=== PATIENT | male | born 1945 | race Caucasian/White ===

== ENCOUNTER 2016-06-06 23:56 | Inpatient (IN) | payer MEDICARE ==
--- NOTE | 2016-06-07 00:43 | ED ---
General Adult HPI - General Chief complaint: Syncope Stated complaint: Syncope Time Seen by Provider: 06/07/16 00:13 Source: patient, family, RN notes reviewed Mode of arrival: ambulatory Limitations: no limitations - History of Present Illness Initial comments: Patient is a pleasant 71-year-old male presenting to the emergency department for syncopal episodes. Patient had 2 episodes earlier in the week and then 2 again today. These were witnessed by family. Patient become suddenly unresponsive in the last around 3 minutes. Following that patient comes responsive immediately. These are not similar to patient's previous seizures. He should states he feels fine at this time and has no complaints. No headache. No weakness. No confusion. No chest pain or dyspnea. No abdominal pain. Patient was seen at [facility] earlier today and transferred. Patient reportedly had negative computed tomography scan of the brain and troponin was negative. Patient was transferred for level of care and neurology evaluation. - Related Data Home Medications Medication Instructions Recorded Confirmed Hydrocodone/Acetaminophen [[place] 1 tab PO Q6HR PRN 06/07/16 06/07/16 7.5-325] Lisinopril [Zestril] 5 mg PO DAILY 06/07/16 06/07/16 Metoprolol Tartrate [Lopressor] 100 mg PO HS 06/07/16 06/07/16 Allergies Allergy/AdvReac Type Severity Reaction Status Date / Time No Known Allergies Allergy Verified 06/07/16 00:04 Review of Systems ROS Statement: Those systems with pertinent positive or pertinent negative responses have been documented in the HPI. ROS Other: All systems not noted in ROS Statement are negative. Constitutional: Denies: fever Eyes: Denies: eye pain ENT: Denies: ear pain Respiratory: Denies: cough, dyspnea Cardiovascular: Denies: chest pain Endocrine: Denies: fatigue Gastrointestinal: Denies: abdominal pain Genitourinary: Denies: dysuria Musculoskeletal: Denies: back pain Skin: Denies: rash Neurological: Denies: headache, weakness, confusion Past Medical History Past Medical History: Hyperlipidemia, Hypertension History of Any Multi-Drug Resistant Organisms: None Reported Past Surgical History: Unable to Obtain Past Psychological History: No Psychological Hx Reported Smoking Status: Never smoker Past Alcohol Use History: Occasional Past Drug Use History: None Reported General Exam Limitations: no limitations General appearance: alert, in no apparent distress Head exam: Present: atraumatic, normocephalic Eye exam: Present: normal appearance, PERRL, EOMI. Absent: nystagmus ENT exam: Present: normal oropharynx Neck exam: Present: normal inspection Respiratory exam: Present: normal lung sounds bilaterally Cardiovascular Exam: Present: regular rate, normal rhythm Expanded Peripheral pulses: 2+: Radial (R), Radial (L), Posterior Tibialis (R), Posterior Tibialis (L) GI/Abdominal exam: Present: soft. Absent: tenderness, pulsatile mass Extremities exam: Present: normal inspection. Absent: pedal edema, calf tenderness Neurological exam: Present: alert, oriented X3, CN II-XII intact, motor sensory deficit Expanded Patient oriented to: Present: person, place, time Speech: Present: fluid speech Cranial nerves: EOM's Intact: Normal Motor strength exam: RUE: 5, LUE: 5, RLE: 5, LLE: 5 Eye Response: (4) open spontaneously Motor Response: (6) obeys commands Verbal Response: (5) oriented Psychiatric exam: Present: normal affect, normal mood Skin exam: Absent: rash Course Vital Signs 06/07/16 00:01 Temperature 97.9 F Pulse Rate 78 Respiratory 20 Rate Blood Pressure 140/62 O2 Sat by Pulse 94 L Oximetry - Reevaluation(s) Reevaluation #1: 06/07/16 00:48 Chart review from transferring hospital. EKG Findings - EKG Comments: EKG Findings:: Normal sinus rhythm at 70. Normal intervals. Normal axis. Normal QRS. No acute ST change. Medical Decision Making - Medical Decision Making Case discussed with practitioner Aura, who will admit for Dr. Capps, covering for hospital call. Disposition Clinical Impression: Syncope Disposition: ADMITTED IP TO THIS HOSP
[2016-06-07] MEDS ORDERED: NALOXONE 0.4 MG/ML 1 ML VIAL IV PRN (00:50)
--- NOTE | 2016-06-07 01:30 | XR ---
EXAMINATION TYPE: XR chest 2V DATE OF EXAM: 06/07/2016 1:22 AM COMPARISON: NONE HISTORY: Episodes of syncope, seizure history of hypertension. TECHNIQUE: Frontal and lateral views of the chest are obtained. FINDINGS: Chronic interstitial lung changes are suggested bilaterally. Suggestion of mild atelectasis in the right lung base with possible mild infiltrate. There is no pneumothorax or pleural effusion. The cardiac silhouette size is within normal limits. Mu ltilevel mild degenerative changes in the thoracic spine.. Mild wedge compression deformity is noted in the lower thoracic vertebra most likely chronic in nature. IMPRESSION: 1. Possible mild infiltrate and atelectasis in the right lung base. 2. Chronic lung changes are suggested.
[2016-06-07 04:36] VITALS: BMI 33.7
[2016-06-07] MEDS: SODIUM CHLORIDE 0.9% 1,000 ML IV SCH ×2 (05:32→22:13)
[2016-06-07] MEDS ORDERED: HYDROcodone/APAP 5-325MG 1 EACH TAB PO PRN (08:29)
[2016-06-07] MEDS: DULoxetine HCL 60 MG CAPSULE.DR PO SCH (10:04)
[2016-06-07] MEDS: ETODOLAC 400 MG TAB PO SCH ×2 (10:07→21:13)
[2016-06-07] MEDS: LISINOPRIL 5 MG TAB PO SCH (10:07)
[2016-06-07] MEDS: METOPROLOL TARTRATE 50 MG TAB PO SCH ×2 (10:08→21:13)
[2016-06-07] MEDS ORDERED: RX INFO: IV CONTRAST WAS GIVEN 1 EACH MISC MISCELLANE PRN (11:33)
[2016-06-07 12:07] LABS: Basophils # (A) 0.1 k/uL (0-0.2); Basophils % (A) 1 %; CH 30.4; CHCM 34.1; Eosinophils # (A) 0.2 k/uL (0-0.7); Eosinophils % (A) 3 %; HGB 13.6 gm/dL (13.0-17.5); Luc # (Auto) 0.18; Luc % (Auto) 3; Lymphocytes # (A) 1.8 k/uL (1.0-4.8); Lymphocytes % (A) 27 %; MCH 28.9 pg (25.0-35.0); MCHC 32.3 g/dL (31.0-37.0); MCV 89.5 fL (80.0-100.0); Mean Platelet Volume 6.5; Monocytes # (A) 0.4 k/uL (0-1.0); Monocytes % (A) 7 %; Neutrophils # (A) 3.9 k/uL (1.3-7.7); Neutrophils % (A) 60 %; RDW 12.8 % (11.5-15.5); WBC 6.5 k/uL (3.8-10.6); WBC (Perox) 6.68
--- NOTE | 2016-06-07 12:33 | CONS ---
DATE OF CONSULTATION: CHIEF COMPLAINT: Syncope. Mr. Elizondo is a 71-year-old gentleman who presented to the hospital having had recurrent episodes of syncope. He is from [place]. They did not have any beds so they transferred him to our hospital. The patient states that he had 2 episodes of syncope initially earlier in the weak and then again 2 yesterday. He suddenly becomes unresponsive, lasts for about 3 minutes. The patient has had seizures in the past, but these 2 times he apparently did not. Had a CT brain that was negative. At the time of my evaluation, he appears comfortable at rest and is free of symptoms. Rhythm strip shows that he is in sinus rhythm without ST-T wave changes. EKG is normal. Labs show an elevated D-dimer. Troponins are negative. I am going to obtain a CTA to rule out pulmonary embolism. I do not have any creatinine on him, we will get a set of labs from here. Past medical history is significant for hypertension. Current medications include Lopressor 100 daily, Zestril 5 mg daily, [place], Voltaren, Cymbalta. ALLERGIES: There are no known drug allergies. Family history is negative for premature coronary artery disease. Social history is negative for current smoking, EtOH abuse or drug abuse. REVIEW OF SYSTEMS: HEENT: Unremarkable. CARDIAC: As described above. RESPIRATORY: Negative. GI: Negative. GENITOURINARY: Negative. ALLERGY/IMMUNOLOGICAL: Negative. MUSCULOSKELETAL: Significant for arthritis. PSYCHOSOCIAL: Negative. ENDOCRINE: Negative. HEMATOLOGICAL: Negative. DERMATOLOGICAL: Negative. CONSTITUTIONAL: Negative. NEUROLOGICAL: Significant for syncope. On exam, patient is comfortable at rest. Vital signs are stable. There is no jugular venous distention. Carotid upstroke is normal. There is no bruit. Chest exam reveals good air entry bilaterally. Heart exam reveals first and second heart sounds. No gallop. Has an ejection systolic murmur in the aortic area. Abdomen is soft. Exam of the extremities did not reveal edema. Peripheral pulses are felt. ASSESSMENT: Syncope; rule out cardiac causes. PLAN: I am going to obtain a CTA to rule out pulmonary embolism and echocardiogram to assess LV function, wall motion and valvular heart disease and a carotid duplex study. If this initial workup is negative, we can discharge him home and pursue outpatient workup. He will be set up for an appointment through my office and he will undergo a stress test.
[2016-06-07 12:37] LABS: ALT 51 U/L (21-72); AST 33 U/L (17-59); Alkaline Phosphatase 66 U/L (38-126); Anion Gap 8 mmol/L; Blood Urea Nitrogen 17 mg/dL (9-20); Calcium 8.9 mg/dL (8.4-10.2); Carbon Dioxide 28 mmol/L (22-30); Chloride 105 mmol/L (98-107); Glucose 87 mg/dL (74-99); Magnesium 2.1 mg/dL (1.6-2.3); Non-African American GFR(MDRD) >60 (>60 ml/min/1.73 sqM); Sodium 141 mmol/L (137-145); Total Bilirubin 0.6 mg/dL (0.2-1.3); Total Protein 6.3 g/dL (6.3-8.2)
--- NOTE | 2016-06-07 14:09 | CT ---
EXAMINATION TYPE: CT angio chest DATE OF EXAM: 06/07/2016 1:56 PM COMPARISON: Chest x-ray 07 June 2016 HISTORY: Patient complains of syncopal episode. CT DLP: 443.8 mGycm Automated exposure control for dose reduction was used. CONTRAST: CTA scan of the thorax is performed with IV Contrast, patient injected with 100 mL of Omnipaque 350, pulmonary embolism protocol. MIP images are created and reviewed. 3D reconstructed images are creat ed on an independent workstation and reviewed. FINDINGS: LUNGS: Minimal dependent atelectatic changes are present. No pleural effusion. Some minimal groundgla ss opacity present bilaterally may represent some pneumonitis, alveolitis. There are some interstitia l changes, thickening of interlobular septal pleural lines. AORTA: The ascending aorta is dilated measuring approximately 4.2 cm. There is a right-sided arch wi th aberrant left subclavian artery in a retroesophageal course. MEDIASTINUM: There is satisfactory enhancement of the pulmonary artery and its branches, there is no CT evidence for pulmonary embolism. There are no greater than 1 cm hilar or mediastinal lymph nodes. No pericardial effusion is seen. OTHER: There are coronary artery calcifications. Upper abdomen within normal limits. IMPRESSION: Correlate to exclude congestive heart failure with early interstitial and alveolar edema. Right aorti c arch with aberrant left subclavian artery as described. No evident pulmonary embolism. Ascending ao rtic aneurysm. Coronary artery disease. Additional findings above.
--- NOTE | 2016-06-07 14:42 | US ---
EXAMINATION TYPE: US carotid duplex BILAT DATE OF EXAM: 06/07/2016 2:13 PM COMPARISON: NONE CLINICAL HISTORY: Syncope. EXAM MEASUREMENTS: RIGHT: Peak Systolic Velocity (PSV) cm/sec ----- Right CCA: 35.7 ----- Right ICA: 139.1 ----- Right ECA: 40.9 ICA/CCA ratio: 3.9 RIGHT: End Diastole cm/sec ----- Right CCA: 9.5 ----- Right ICA: 36.0 ----- Right ECA: 6.0 LEFT: Peak Systolic Velocity (PSV) cm/sec ----- Left CCA: 43.5 ----- Left ICA: 133.3 ----- Left ECA: 107.5 ICA/CCA ratio: 3.1 LEFT: End Diastole cm/sec ----- Left CCA: 9.5 ----- Left ICA: 19.2 ----- Left ECA: 25.0 VERTEBRALS (direction of flow): Right Vertebral: Antegrade Left Vertebral: Antegrade Grayscale, color Doppler, spectral Doppler imaging performed of the carotid arteries. There are eleva lee velocities in bilateral ICA's with ratios suggestive of Carotid stenosis. There is loss of the systolic window, spectral broadening is noted. IMPRESSION: Findings suggest hemodynamic significant stenosis of the proximal internal carotid arter ies bilaterally by Doppler criteria, and indirect measurement of carotid stenosis. Suspect at least 50-69% diameter reduction of the proximal internal carotid artery on the right. Consider carotid CTA . Criteria for Assigning % of Stenosis / Diameter reduction (Estimation based on the indirect measurements of the internal carotid artery velocities (ICA PSV). 1. Normal (no stenosis)=ICA PSV < 125 cm/s: ratio < 2.0: ICA EDV<40 cm/s. 2. Less than 50% stenosis=ICA PSV < 125 cm/s: ratio < 2.0: ICA EDV<40 cm/s. 3. 50 to 69% stenosis=ICA PSV of 125 to 230 cm/s: ration 2.0 ? 4.0: ICA EDV 40-100 cm/s. 4. Greater than 70% stenosis to near occlusion= ICA PSV > 230 cm/s: ratio > 4.0: ICA EDV > 100 cm/s. 5. Near occlusion= ICA PSV velocities may be low or undetectable: variable ratio and ICA EDV. 6. Total occlusion=unable to detect flow.
[2016-06-07] MEDS ORDERED: ACETAMINOPHEN TAB 500 MG TAB PO PRN (14:57)
[2016-06-07] MEDS ORDERED: ALPRAZolam 0.25 MG TAB PO PRN (14:57)
[2016-06-07] MEDS: FUROSEMIDE 10 MG/ML 4 ML VIAL IV SCH (16:30)
[2016-06-07 16:45] LABS: Appearance,Urine Clear (Clear); Bilirubin,Urine 1+ (Negative); Glucose,Urine (UA) Negative (Negative); Ketones,Urine Negative (Negative); Leukocyte Esterase,Urine Negative (Negative); Nitrite,Urine Negative (Negative); PH, Urine 5.5 (5.0-8.0); Protein,Urine Negative (Negative); Specific Gravity,Urine 1.037 (1.001-1.035); UA Billing (MACRO vs. MICRO) CHEM; Urobilinogen,Urine <2.0 mg/dL (<2.0)
--- NOTE | 2016-06-07 17:10 | P.CONS ---
History of Present Illness - Reason for Consult Consult date: 06/07/16 Syncope - Chief Complaint Syncope - History of Present Illness This is a 71-year-old male being evaluated by the neurology Department for syncopal episodes. He had 2 episodes earlier in the week and then 2 on the day of admission. These were witnessed by family and lasted minutes. There was no postictal confusion. He denies any aura. There is no headache there is no weakness. He was transferred here from [facility] initial CT of brain was negative. CTA of the chest was ordered and because of increased d-dimer. This was negative. A carotid Doppler was done and showed moderate stenosis of bilateral internal carotid arteries. Consultation has been placed to address this. An EEG has been accomplished. At time my exam he is resting comfortably in bed. Review of Systems All systems: negative Past Medical History Past Medical History: Hyperlipidemia, Hypertension, Seizure Disorder Additional Past Medical History / Comment(s): Chronic back pain (spurs) History of Any Multi-Drug Resistant Organisms: None Reported Past Surgical History: Unable to Obtain Past Anesthesia/Blood Transfusion Reactions: No Reported Reaction Past Psychological History: No Psychological Hx Reported Smoking Status: Never smoker Past Alcohol Use History: Occasional Past Drug Use History: None Reported Medications and Allergies Home Medications Medication Instructions Recorded Confirmed Type DULoxetine HCL [Cymbalta] 60 mg PO DAILY 06/07/16 06/07/16 History Diclofenac Sodium [Voltaren] 75 mg PO BID 06/07/16 06/07/16 History Hydrocodone/Acetaminophen [[place] 1 tab PO BID PRN 06/07/16 06/07/16 History 7.5-325] Lisinopril [Zestril] 5 mg PO DAILY 06/07/16 06/07/16 History Metoprolol Tartrate [Lopressor] 100 mg PO HS 06/07/16 06/07/16 History Allergies Allergy/AdvReac Type Severity Reaction Status Date / Time No Known Allergies Allergy Verified 06/07/16 08:02 Physical Exam Vitals: Vital Signs Temp Pulse Pulse Resp BP BP Pulse Ox 06/07/16 15:24 96.7 F L 54 L 18 147/84 93 L 06/07/16 12:00 97.6 F 57 L 16 153/83 95 06/07/16 08:00 97.5 F L 64 16 149/65 95 06/07/16 04:18 96.9 F L 58 L 16 153/79 94 L 06/07/16 03:45 69 20 168/81 96 Intake and Output 06/07/16 06/07/16 06/07/16 06:59 14:59 22:59 Intake Total 219 20 Balance 219 20 Intake: IV 39 20 Invasive Line 1 29 Sodium Chloride 0.9% 1, 10 20 000 ml @ 20 mls/hr IV . Q24H JAY Rx#:[id number] Oral 180 Other: Voiding Method Urinal # Voids 2 Weight 103.6 kg - Constitutional General appearance: average body habitus, cooperative, no acute distress - EENT Eyes: no abnormal pupil, EOMI, PERRLA, no ptosis ENT: hearing grossly normal - Neck Neck: normal ROM, no rigidity - Respiratory Respiratory: negative: prolonged expiration, prolonged inspiration - Cardiovascular Rhythm: regular - Gastrointestinal General gastrointestinal: no distended, no tenderness - Neurologic Patient is alert, awake and oriented 3. Speech and language are normal. There is no lateralizing weakness. Strength is full in bilateral upper and lower extremities. There is no sensory deficit in any extremity. There is no facial asymmetry. No pronator drift. No weakness on standing. Gait is mildly unsteady. Results CBC & Chem 7: 06/07/16 11:45 06/07/16 11:45 Labs: Abnormal Lab Results - Last 24 Hours (Table) 06/07/16 06/07/16 Range/Units 01:07 16:30 D-Dimer 0.77 H (<0.60) mg/L FEU Ur Specific [place] 1.037 H (1.001-1.035) Urine Bilirubin 1+ H (Negative) Urine Opiates Screen Detected H (NotDetected) U Marijuana (THC) Screen Detected H (NotDetected) Assessment and Plan (1) Syncope, cardiogenic Status: Acute (2) Hypertension Status: Chronic (3) Carotid stenosis Status: Chronic Plan: His episodes are likely cardiogenic in nature. Continue evaluation and treatment by cardiology and vascular. An EEG has been performed. Barring any unforeseen abnormalities on his EEG he would be cleared from a neurological standpoint. I have reviewed the history and physical on the above patient. I have reviewed the above note, and agree.
--- NOTE | 2016-06-07 17:44 | HP ---
DATE OF ADMISSION: 06/07/2016 CHIEF COMPLAINT: Recurrent syncope. HISTORY OF PRESENT ILLNESS: This 71-year-old gentleman with past medical history of multiple medical problems, including hypertension, hyperlipidemia, seizure disorder, history of chronic back pain, history of degenerative joint disease, being followed by primary care physician in the outpatient setting was admitted with complaints of recurrent seizures. Over the last week, the patient had at least 2 episodes. The episodes were witnessed by family. The patient became suddenly unresponsive and lasted for 2 to 3 minutes. The patient became responsive immediately. Apparently there is some question of incontinence also. Patient was taken to [facility] and was admitted for further evaluation and treatment. Seizures are not like the patient's usual seizures according to the family. There is no history of fever, rigors or chills. No history of headache, loss of consciousness. Neurology evaluation in progress. On admission, the patient had a full work-up including chest x-ray, which showed mild infiltrate and possible atelectasis in the right lung base and some chronic changes. The EKG shows normal sinus rhythm. Carotid Doppler showed paroxysmal internal carotid artery stenosis at least 50 to 69% and a chest CT was done to rule out pulmonary embolism which showed mild congestive heart failure. Otherwise, CAT scan of the brain was also noted. The patient is referred from [facility] and transferred. CAT scan done was negative. PAST MEDICAL HISTORY: History of hypertension, hyperlipidemia, seizure disorder, history of chronic seizures. Medications prior to admission: 1. Lopressor 100 mg p.o. q.h.s. 2. Zestril 5 mg p.o. daily. 3. [place] 7.5 b.i.d. p.r.n. 4. Voltaren 75 mg p.o. b.i.d. 5. Cymbalta 60 mg p.o. daily. ALLERGIES: None. FAMILY HISTORY: No history of heart disease or strokes in the family. SOCIAL HISTORY: No history of smoking. No history of alcohol intake. REVIEW OF SYSTEMS: ENT: No diminished hearing. No diminished vision. CARDIOVASCULAR SYSTEM: No angina or palpitations. RESPIRATORY: As mentioned earlier. GASTROINTESTINAL: No nausea or vomiting. GASTROINTESTINAL: No dysuria. CENTRAL NERVOUS SYSTEM: As mentioned earlier. ALLERGY/IMMUNOLOGY: No asthma or hayfever. MUSCULOSKELETAL: As mentioned earlier. HEMATOLOGY/ONCOLOGY: No history of anemia. ENDOCRINE: No history of diabetes mellitus or hypothyroidism. CONSTITUTIONAL: As mentioned earlier. DERMATOLOGY: Negative. RHEUMATOLOGY: Negative. PSYCHIATRY: As mentioned earlier. PHYSICAL EXAMINATION: Alert and oriented x3, pulse 58, blood pressure 150/70. Respiratory rate 16, temperature 96.9, pulse ox 94% on room air. HEENT: Conjunctivae normal. Oral mucosa moist. NECK: No jugular venous distention. No carotid bruit. No lymph node enlargement. CARDIOVASCULAR: S1, S2 muffled. RESPIRATORY: Breath sounds diminished at the bases. Bilateral scattered rhonchi and crackles. ABDOMEN: Soft, nontender. No mass palpable. LEGS: No edema. No swelling. Nervous system: Higher function as mentioned earlier. Moves all 4 limbs. No focal deficits. LYMPHATICS: No lymph nodes palpable in the neck, axillae or groin. SKIN: No ulcer, rash or bleeding. LABS: CBC within normal limits. Troponin is less than 0.012, d-dimer 0.77. ASSESSMENT: 1. Recurrent syncope for evaluation possible seizure disorder. 2. Rule out congestive heart failure, acute exacerbation. 3. Hypertension. 4. Hyperlipidemia. 5. History of seizure disorder. 6. Chronic degenerative joint disease. 7. Increased d-dimer with no evidence of pulmonary embolism. 8. 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 9. Bilateral internal carotid artery stenosis 50 to 69%. RECOMMENDATIONS AND DISCUSSION: In this 71 -year-old gentleman who presented with multiple complex medical issues, we will monitor the patient closely, continue the current medications, continue symptomatic treatment. I would also recommend EEG with Dr. Bailon with neurology and continue to monitor. Otherwise watch for seizures. Seizure precautions. Neurovascular work-up and neurochecks. Otherwise, resume the home medications. I would also recommend a cardiac , 2-D echo and as well as BNP also. Cardiology also been consulted and we will continue to monitor. Further recommendations to follow. Prognosis guarded. Discussed with the patient, understands and agrees. TOSHA
--- NOTE | 2016-06-07 20:10 | CONS ---
DATE OF CONSULTATION: This patient is a 71-year-old gentleman who came to the emergency room episode of syncopal attack. This happened earlier in the week and again. Patient came to the emergency room and he became unresponsive for about 3 minutes. After that patient recovered completely. No history of any seizure. No history of any motor deficit. No history of amaurosis fugax. No history of chest pain. No shortness of breath. PAST MEDICAL HISTORY: History of hyperlipidemia, hypertension. SURGICAL HISTORY: No major surgery done in the past. On examination, patient was seen in his room. His vital signs are stable. No bruit appreciated in the neck. Chest is clear to auscultation. First and second sounds are normal. Abdomen is soft, nontender. Neuro exam is alert. Cranial nerves intact. Normal motor function VASCULAR EXAMINATION: Brachial, radial and femoral pulses are present. The patient had carotid ultrasound which showed right side 50% to 69% stenosis. The patient also had a CT of the chest, which showed ascending aortic aneurysm, 4.2 cm. No evidence of pulmonary embolism. IMPRESSION: Syncopal attack with the right carotid 50 to 69% stenosis. Patient has been admitted and neuro consult has been obtained. We will follow with you. The patient needs cardiac work-up.
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
[2016-06-07] MEDS ORDERED: TEMAZEPAM 15 MG CAP PO PRN (21:00)
[2016-06-07] MEDS: HYDROcodone/APAP 7.5-325MG 1 EACH TAB PO SCH (21:15)
[2016-06-08 06:45] LABS: Basophils # (A) 0.1 k/uL (0-0.2); Basophils % (A) 1 %; CH 30.4; Eosinophils # (A) 0.3 k/uL (0-0.7); Eosinophils % (A) 4 %; HCT 43.4 % (39.0-53.0); HDW 2.68; HGB 14.2 gm/dL (13.0-17.5); Luc # (Auto) 0.16; Luc % (Auto) 2; Lymphocytes % (A) 30 %; MCH 29.3 pg (25.0-35.0); MCHC 32.6 g/dL (31.0-37.0); MCV 89.8 fL (80.0-100.0); Mean Platelet Volume 6.1; Monocytes # (A) 0.4 k/uL (0-1.0); Monocytes % (A) 6 %; Neutrophils # (A) 3.8 k/uL (1.3-7.7); Neutrophils % (A) 57 %; RBC 4.83 m/uL (4.30-5.90); RDW 12.8 % (11.5-15.5); WBC 6.7 k/uL (3.8-10.6); WBC (Perox) 7.15
[2016-06-08 07:06] LABS: ALT 49 U/L (21-72); AST 26 U/L (17-59); Alkaline Phosphatase 61 U/L (38-126); Anion Gap 8 mmol/L; Blood Urea Nitrogen 20 mg/dL (9-20); Calcium 8.7 mg/dL (8.4-10.2); Carbon Dioxide 30 mmol/L (22-30); Chloride 104 mmol/L (98-107); Cholesterol 206 mg/dL (<200); Glucose 88 mg/dL (74-99); HDL Cholesterol 57 mg/dL (40-60); Non-African American GFR(MDRD) >60 (>60 ml/min/1.73 sqM); Potassium 4.2 mmol/L (3.5-5.1); Sodium 142 mmol/L (137-145); Total Bilirubin 0.5 mg/dL (0.2-1.3); Total Protein 6.2 g/dL (6.3-8.2); Triglycerides 51 mg/dL (<150)
[2016-06-08] MEDS: FUROSEMIDE 10 MG/ML 4 ML VIAL IV SCH (08:02)
[2016-06-08] MEDS: HYDROcodone/APAP 7.5-325MG 1 EACH TAB PO SCH ×2 (08:02→20:01)
[2016-06-08] MEDS: METOPROLOL TARTRATE 50 MG TAB PO SCH ×2 (08:03→20:02)
[2016-06-08] MEDS: ETODOLAC 400 MG TAB PO SCH ×2 (08:03→20:02)
[2016-06-08] MEDS: DULoxetine HCL 60 MG CAPSULE.DR PO SCH (08:03)
[2016-06-08] MEDS: LISINOPRIL 5 MG TAB PO SCH (08:03)
--- NOTE | 2016-06-08 10:20 | ECHOF ---
Referral Reason:syncope MEASUREMENTS -------- HEIGHT: 182.9 cm WEIGHT: 104.3 kg BP: RVIDd: 2.6 cm (< 3.3) IVSd: 1.3 cm (0.6 - 1.1) LVIDd: 5.2 cm (3.9 - 5.3) LVPWd: 1.4 cm (0.6 - 1.1) IVSs: 2.0 cm LVIDs: 4.4 cm LVPWs: 1.4 cm LA Diam: 3.9 cm (2.7 - 3.8) LAESV Index (A-L): 33.21 ml/m MV EXCURSION: 21.518 mm (> 18.000) MV EF SLOPE: 34 mm/s (70 - 150) EPSS: 1.1 cm MV E Frederic: 0.65 m/s MV DecT: 216 ms MV A Frederic: 0.75 m/s MV E/A Ratio: 0.87 AV maxP.32 mmHg AV meanP.95 mmHg RAP: 5.00 mmHg RVSP: 15.66 mmHg FINDINGS -------- Sinus rhythm. This was a technically adequate study. There is mild concentric left ventricular hypertrophy. Overall left ventricular systolic function is low-normal with, an EF between 50 - 55 %. Both the mean atrial pressure as well as the LV end diastolic pressure is elevated 14.38. The right ventricle is normal in size. LA is midly dilated 29-33ml/m2. The right atrial size is normal. There is mild aortic regurgitation. There is moderate aortic stenosis present. Peak/mean gradient across the Aortic Valve is 56.32mmHg / 29.95mmHg. Can't exclude Bicuspid valve vs fused cusp. Mild mitral annular calcification present. Mild mitral regurgitation is present. Mild tricuspid regurgitation present. There is no evidence of pulmonary hypertension. The right ventricular systolic pressure, as measured by Doppler, is 15.66mmHg. There is no pulmonic regurgitation present. The aortic root size is normal. There is no pericardial effusion. CONCLUSIONS -------- 1. There is mild concentric left ventricular hypertrophy. 2. Mild mitral regurgitation is present. 3. Mild tricuspid regurgitation present. 4. There is no evidence of pulmonary hypertension. 5. The right ventricular systolic pressure, as measured by Doppler, is 15.66mmHg. 6. Overall left ventricular systolic function is low-normal with, an EF between 50 - 55 %. 7. Both the mean atrial pressure as well as the LV end diastolic pressure is elevated 14.38. 8. LA is midly dilated 29-33ml/m2. 9. There is mild aortic regurgitation. 10. There is moderate aortic stenosis present. 11. Peak/mean gradient across the Aortic Valve is 56.32mmHg / 29.95mmHg. 12. Can't exclude Bicuspid valve vs fused cusp. 13. Mild mitral annular calcification present. STORE ASSOCIATE: Mayuri Mendez RDCS
--- NOTE | 2016-06-08 13:48 | PN ---
Mr. Elizondo was evaluated by me. Clinically, he appears to have at least a moderate, if not severe aortic stenosis. He came in with an episode of syncope. Patient is not a reliable historian. His vital signs are stable. JVD 1 cm. Ejection systolic murmur is audible. Lungs are clear. Abdomen and lower extremity exam unchanged. Plan is to continue current medications. Increase activity. Continue telemetry. I will also obtain a neurology evaluation to rule out any underlying dementia or some confusional states. He has moderate aortic stenosis, cannot exclude coronary artery disease, but has no arrhythmia to explain syncope unless aortic stenosis alone can explain the syncopal spell, but he was not doing any physical activity when he passed out. However, his story about what happened exactly seems quite inconsistent. We will monitor telemetry and based on clinical course, I will make further recommendations.
[2016-06-08] MEDS: HEPARIN SODIUM,PORCINE 5,000 UNIT/ML 1 ML VIAL SQ SCH (20:03)
--- NOTE | 2016-06-08 21:21 | PN ---
DATE OF SERVICE: 06/08/2016 This 71-year-old gentleman who was admitted with recurrent syncope is being closely monitored at this time. Neurology Dr. Bailon has seen the patient and recommended, possibly look for any cardiac etiology for the syncope. The patient also had bilateral carotid artery stenosis also. Dr. Shaikh thinks the patient is not a surgical candidate at this time. The 2-D echo showed ejection fraction about 50 to 55%. Mild aortic regurgitation, as well as moderate aortic stenosis, also. The peak mean gradient across the aortic valve was 56 and 29. Bicuspid valve fused cusp cannot be ruled out. Mild mitral regurgitation and mild tricuspid regurgitation also noted. PAST MEDICAL HISTORY: Reviewed. REVIEW OF SYSTEMS: CARDIOVASCULAR: No angina. RESPIRATORY: As mentioned earlier. GASTROINTESTINAL: As mentioned earlier. : No dysuria. Nervous system: As mentioned earlier. Current medications are reviewed and include: 1. Tylenol 500 mg q6h p.r.n. 2. [place] 7.5 b.i.d. 3. Xanax 0.25 t.i.d. 4. Cymbalta 60 mg daily. 5. Lodine 400 mg b.i.d. 6. Lasix 40 mg daily. 7. Heparin 5000 subcu b.i.d. 8. Zestril 5 mg daily. 9. Lopressor 50 mg p.o. b.i.d. 10. Restoril 50 mg q.h.s. p.r.n. PHYSICAL EXAMINATION: Alert and oriented x3. Pulse is 59, blood pressure 149/62, respiratory rate 16, temperature 97.2, pulse ox 94% on room air. HEENT: Conjunctivae normal. NECK: No jugular venous distention. CARDIOVASCULAR: S1, S2 muffled. Ejection systolic murmur. RESPIRATORY: Breath sounds diminished at the bases. A few scattered rhonchi and crackles. ABDOMEN: Soft, nontender. Legs: No edema. No swelling. Nervous system: Higher function as mentioned. Moves all four limbs. No focal deficits. LYMPHATICS: No lymph nodes palpable in the neck, axillae or groin. SKIN: No ulcer, rash or bleeding. Labs are THC positive in the urine. Otherwise, cholesterol, LDL 139. ASSESSMENT: 1. Recurrent syncope for evaluation rule out seizure disorder or cardiac arrhythmia. 2. Moderate aortic stenosis. 3. Hyperlipidemia. 4. Positive. THC. 5. Possible congestive heart failure with acute on chronic diastolic dysfunction, ejection fraction 50% to 55%. 6. Hypertension. 7. Hyperlipidemia. 8. History of seizure disorder. 9. History of chronic degenerative joint disease . 10. Increased D. dimer without any evidence of pulmonary embolism. 11. 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 12. Bilateral internal carotid stenosis 50 to 69%. RECOMMENDATIONS AND DISCUSSION: In this 71-year-old gentleman who presented with multiple complex medical issues, we will monitor the patient closely, continue the current medications, continue symptomatic treatment. Discussed with cardiology, possible RENETTA. Otherwise also recommend repeat labs. I would also repeat chest x-ray to evaluate the fluid and electrolyte balance. Repeat labs. Guarded prognosis because of multiple complex medical issues. Further recommendations to follow. Discussed with the patient, understands and agrees. TOSHA
[2016-06-09 04:36] VITALS: RESP 16
[2016-06-09] MEDS: SODIUM CHLORIDE 0.9% 1,000 ML IV SCH (05:29)
[2016-06-09 06:12] LABS: Basophils # (A) 0.1 k/uL (0-0.2); Basophils % (A) 1 %; CH 30.4; CHCM 34.2; Eosinophils # (A) 0.3 k/uL (0-0.7); Eosinophils % (A) 4 %; HDW 2.69; HGB 14.5 gm/dL (13.0-17.5); Luc # (Auto) 0.23; Luc % (Auto) 3; Lymphocytes # (A) 2.2 k/uL (1.0-4.8); Lymphocytes % (A) 29 %; MCH 29.4 pg (25.0-35.0); MCHC 32.9 g/dL (31.0-37.0); MCV 89.3 fL (80.0-100.0); Mean Platelet Volume 6.2; Monocytes # (A) 0.5 k/uL (0-1.0); Monocytes % (A) 6 %; Neutrophils # (A) 4.3 k/uL (1.3-7.7); Neutrophils % (A) 57 %; RBC 4.92 m/uL (4.30-5.90); RDW 12.8 % (11.5-15.5); WBC 7.5 k/uL (3.8-10.6); WBC (Perox) 7.55
[2016-06-09 06:22] LABS: ALT 50 U/L (21-72); AST 31 U/L (17-59); Alkaline Phosphatase 62 U/L (38-126); Anion Gap 9 mmol/L; Blood Urea Nitrogen 20 mg/dL (9-20); Calcium 8.7 mg/dL (8.4-10.2); Carbon Dioxide 29 mmol/L (22-30); Chloride 104 mmol/L (98-107); Glucose 85 mg/dL (74-99); Non-African American GFR(MDRD) >60 (>60 ml/min/1.73 sqM); Potassium 4.2 mmol/L (3.5-5.1); Sodium 142 mmol/L (137-145); Total Bilirubin 0.8 mg/dL (0.2-1.3); Total Protein 6.3 g/dL (6.3-8.2)
--- NOTE | 2016-06-09 07:37 | XR ---
EXAMINATION TYPE: XR chest 1V portable DATE OF EXAM: 06/09/2016 6:39 AM COMPARISON: Prior chest x-ray 07 June 2016 HISTORY: Congestive heart failure, hypertension TECHNIQUE: Single frontal view of the chest is obtained. FINDINGS: There are overlying cardiac leads. Heart size is stable. No pneumothorax or pleural effusi on. Pulmonary vascularity and taty not significantly changed. Right-sided aortic arch. Patchy basilar density is noted. IMPRESSION: Suspect basilar atelectasis. Borderline enlarged heart.
[2016-06-09] MEDS: HYDROcodone/APAP 7.5-325MG 1 EACH TAB PO SCH ×2 (08:29→20:46)
[2016-06-09] MEDS: HEPARIN SODIUM,PORCINE 5,000 UNIT/ML 1 ML VIAL SQ SCH ×2 (08:30→20:47)
[2016-06-09] MEDS: FUROSEMIDE 10 MG/ML 4 ML VIAL IV SCH (08:31)
[2016-06-09] MEDS: DULoxetine HCL 60 MG CAPSULE.DR PO SCH (08:34)
[2016-06-09] MEDS: METOPROLOL TARTRATE 50 MG TAB PO SCH (08:34)
[2016-06-09] MEDS: ETODOLAC 400 MG TAB PO SCH ×2 (08:35→20:47)
[2016-06-09] MEDS: LISINOPRIL 5 MG TAB PO SCH (08:35)
--- NOTE | 2016-06-09 09:02 | EEG ---
DATE OF SERVICE: 06/08/2016 INDICATIONS FOR EXAMINATION: Syncope. AGE: 71Y DESCRIPTION OF THE PROCEDURE: This EEG was performed using a 21-channel digital electroencephalograph, following the international 10 to 20 system. DESCRIPTION OF THE RECORDING: From the beginning of the tracing, and with the patient's eyes closed, the background rhythm was mostly consisting of 8 to 9 Hz alpha frequency in the posterior occipital leads. No obvious asymmetry is seen. Occasional muscle and movement artifacts are seen. Photic stimulation was performed with a good driving response seen. No pathological waves were elicited. Hyperventilation was not performed. The patient remains awake throughout the tracing. No epileptiform discharges were seen. His EKG lead showed a regular rate and rhythm. INTERPRETATION: This awake EEG can be considered within normal limits. There was no asymmetry seen. No epileptiform discharges were noticed. The absence of epileptiform discharges does not rule out the diagnosis of epilepsy, therefore, clinical correlation is recommended.
--- NOTE | 2016-06-09 15:34 | PN ---
Mr. Elizondo is a gentleman with a moderate to severe aortic stenosis, had a syncopal episode. I reviewed his records from [facility] and about 2 years ago he had a similar clinical picture. There is also a question of alcoholism and seizure disorder as well, but patient denies both. Vital signs are stable. Ejection systolic murmur is audible. Second heart sound is not well heard. Lungs are clear. Abdomen and lower extremity exam unchanged. I am recommending a transesophageal echo by Dr. Fung tomorrow and we should also consider coronary angiography if the stenosis is significant. I explained this to the patient. The echo suggests the possibility of a bicuspid valve. If so, assessment of ascending aorta should also be performed to rule out any ascending aortic aneurysm-type picture, if this is indeed a bicuspid aortic valve. I discussed this at length with the patient. He seems to understand this. There was a CT angiography performed as well, and the ascending aorta on the CT angiography seems to measure about 4.2 cm with a right-sided arch and an aberrant subclavian. Patient is agreeable and wishes to proceed with a transesophageal echo.
[2016-06-09] MEDS: METOPROLOL TARTRATE 25 MG TAB PO SCH (20:50)
[2016-06-09] MEDS ORDERED: ATORVASTATIN 40 MG TAB PO SCH (21:00)
[2016-06-10] MEDS: SODIUM CHLORIDE 0.9% 1,000 ML IV SCH (01:12)
[2016-06-10 06:53] LABS: Basophils # (A) 0.1 k/uL (0-0.2); Basophils % (A) 1 %; CH 30.4; CHCM 34.2; Eosinophils # (A) 0.3 k/uL (0-0.7); Eosinophils % (A) 4 %; HDW 2.68; HGB 14.3 gm/dL (13.0-17.5); Luc # (Auto) 0.18; Luc % (Auto) 3; Lymphocytes % (A) 29 %; MCHC 32.4 g/dL (31.0-37.0); MCV 89.4 fL (80.0-100.0); Mean Platelet Volume 6.3; Monocytes # (A) 0.4 k/uL (0-1.0); Monocytes % (A) 6 %; Neutrophils # (A) 3.9 k/uL (1.3-7.7); Neutrophils % (A) 58 %; RBC 4.92 m/uL (4.30-5.90); RDW 12.7 % (11.5-15.5); WBC 6.8 k/uL (3.8-10.6); WBC (Perox) 7.05
[2016-06-10 07:01] LABS: ALT 55 U/L (21-72); AST 32 U/L (17-59); Alkaline Phosphatase 69 U/L (38-126); Anion Gap 8 mmol/L; Blood Urea Nitrogen 23 mg/dL (9-20); Calcium 8.8 mg/dL (8.4-10.2); Carbon Dioxide 28 mmol/L (22-30); Chloride 104 mmol/L (98-107); Glucose 87 mg/dL (74-99); Non-African American GFR(MDRD) >60 (>60 ml/min/1.73 sqM); Potassium 4.2 mmol/L (3.5-5.1); Sodium 140 mmol/L (137-145); Total Bilirubin 0.8 mg/dL (0.2-1.3); Total Protein 6.3 g/dL (6.3-8.2)
[2016-06-10] MEDS ORDERED: MIDAZOLAM 2 MG/2 ML VIAL ONE (07:45)
[2016-06-10] MEDS ORDERED: fentaNYL (PF) 50 MCG/ML 2 ML AMP ONE (07:46)
[2016-06-10] MEDS ORDERED: BENZOCAINE SPRAY 100 APPLIC/CAN MUCOUS MEM ONE ×3 (07:46→07:51)
[2016-06-10] MEDS ORDERED: fentaNYL (PF) 50 MCG/ML 2 ML AMP IV ONE (07:51)
[2016-06-10] MEDS ORDERED: MIDAZOLAM 2 MG/2 ML VIAL IVP ONE (07:51)
[2016-06-10] MEDS ORDERED: SODIUM CHLORIDE 0.9% 500 ML IV ONE (07:57)
--- NOTE | 2016-06-10 08:40 | ECHOT ---
DATE OF SERVICE: INDICATION: Aortic stenosis and syncope. After explaining benefits, and alternatives, informed consent was obtained and transesophageal echocardiogram was performed using an Omniplane probe in the left lateral position. Local and IV sedation were obtained using Xylocaine spray, intravenous Versed and fentanyl. Patient tolerated the procedure well without any obvious immediate complications. FINDINGS: 1. Aortic valve is a 3 leaflet that appears heavily calcified with moderate restriction in leaflet mobility by planimetry technique, which was suboptimal secondary to heavily calcified aortic valve. The valve area seems to be around 1.4 square centimeters. Based on the 2-D appearance in the planametry I believe the patient has moderate aortic stenosis. There is mild to moderate aortic regurgitation noted. 2. Mitral valve appears anatomically normal. There is trace mitral regurgitation noted. There is trace tricuspid regurgitation noted. 3. Left atrium appears enlarged. 4. Right atrium, right ventricle within normal limits. 5. Left ventricle has normal size and systolic function. 6. Interatrial septum shows lipomatous hypertrophy without any evidence of [id number] shunt by color flow Doppler or [id number] shunt by ( ) saline contrast study. 7. Ascending aorta measures 3 cm. Aorta shows moderate atherosclerotic changes. CONCLUSIONS: Tricuspid aortic valve with moderate aortic stenosis with mild to moderate aortic regurgitation in this patient who has multiple underlying problems. I am not sure if the syncope is related to aortic stenosis. However, we will follow him on discharge and might consider doing an outpatient cardiac cath on him. Thank you for allowing us to participate in the care of this pleasant gentleman.
[2016-06-10] MEDS: HYDROcodone/APAP 7.5-325MG 1 EACH TAB PO SCH (09:09)
[2016-06-10] MEDS: DULoxetine HCL 60 MG CAPSULE.DR PO SCH (09:09)
[2016-06-10] MEDS: HEPARIN SODIUM,PORCINE 5,000 UNIT/ML 1 ML VIAL SQ SCH (09:09)
[2016-06-10] MEDS: LISINOPRIL 5 MG TAB PO SCH (09:10)
[2016-06-10] MEDS: ETODOLAC 400 MG TAB PO SCH (09:10)
[2016-06-10] MEDS: METOPROLOL TARTRATE 25 MG TAB PO SCH (09:11)
--- NOTE | 2016-06-10 10:16 | PN ---
DATE OF SERVICE: 06/09/2016 This 71-year-old gentleman was admitted with recurrent syncope. He is being evaluated for seizure disorder and cardiac arrhythmia. The patient also had a moderate aortic stenosis. RENETTA is being planned by cardiology. The patient also had a chest x-ray. CHF was also suspected. The patient is being closely monitored at this time. Cardiology and neurology are following the patient. The patient also had carotid stenosis bilaterally. Recommended to follow up in the outpatient setting per Vascular Surgery. PAST MEDICAL HISTORY: Reviewed. REVIEW OF SYSTEMS: CARDIOVASCULAR: No angina or palpitations. GI: As mentioned. : As mentioned. METAL HANGER: No numbness or weakness. Current medications are: 1. Tylenol 500 mg every 6 hours. 2. [place] 7.5 b.i.d. 3. Xanax. 4. Cymbalta. 5. Lodine. 6. Heparin. 7. Zestril. 8. Lopressor. 9. Narcan. 10. Restoril. PHYSICAL EXAM: Patient is alert and oriented x2. Pulse 54, blood pressure 150/76, respirations 16, temperature 96.8, pulse ox 94% on room air. HEENT: Conjunctivae normal. NECK: No JVD. CARDIOVASCULAR: S1 and S2 muffled. LUNGS: Breath sounds are diminished at the bases. Scattered rhonchi. No crackles. ABDOMEN: Soft, nontender. No masses palpable. LEGS: No swelling. NERVOUS SYSTEM: No focal deficits. LABS: LDL is 139. TSH positive. ASSESSMENT: 1. Recurrent syncope for evaluation, rule out seizure disorder, rule out cardiac arrhythmia. 2. Moderate aortic stenosis, for RENETTA. 3. Hyperlipidemia. 4. Positive THC. 5. Possible congestive heart failure, acute exacerbation, with acute on chronic diastolic dysfunction, ejection fraction 50% to 55%. 6. Hypertension. 7. Hyperlipidemia. 8. History of seizure disorder. 9. History of chronic degenerative joint disease. 10. Increased D-dimer without any evidence of pulmonary embolism. 11. 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 12. Bilateral internal carotid stenosis 50% to 60%. 13. FULL CODE. RECOMMENDATIONS: This 72-year-old male patient presented with multiple complex medical issues. We will monitor the patient closely. Continue the current medications and symptomatic treatment. We will add Lipitor to the current regimen. We will continue the rest of the medications. Other than that, RENETTA per Cardiology, monitor rhythm closely. Prognosis guarded because of multiple complex medical issues. Discussed with the patient. Further recommendations to follow.
[2016-06-10 10:32] VITALS: TEMP 97.4
[2016-06-10 11:27] VITALS: BP 149/81; PULSE 49
--- NOTE | 2016-06-11 12:34 | DS ---
DATE OF ADMISSION: 06/07/2016 DATE OF DISCHARGE: 06/10/2016 FINAL DIAGNOSES: 1. Recurrent syncope, possibly multifactorial, contributory moderate aortic stenosis and carotid stenosis. 2. Moderate aortic stenosis on transesophageal echocardiography with 1.4-cm aortic valve area mild amount. 3. Moderate aortic regurgitation. 4. Hyperlipidemia. 5. Positive THC. 6. Possible congestive heart failure with acute exacerbation with acute on chronic diastolic dysfunction, ejection 50% to 55%. 7. Hypertension. 8. Hyperlipidemia. 9. History of seizure disorder. 10. History of chronic degenerative joint disease. 11. Increased D-dimer without any evidence of pulmonary embolism. 13. Bilateral internal carotid artery stenosis which is 60%. 14. FULL CODE. DISCHARGE DISPOSITION: The patient will be discharged in stable condition with a guarded prognosis after being cleared by multiple consultants. TIME TAKEN: 35 minutes. HISTORY OF PRESENT ILLNESS: This 71-year-old gentleman with a past medical history of multiple medical problems admitted with recurrent syncope. Evaluation showed a bilateral internal carotid stenosis as well as moderate aortic stenosis through the RENETTA. Patient was monitored closely, seen by multiple consultants and recommend outpatient followup. On exam, vital signs stable. CARDIOVASCULAR: S1 and S2 muffled. ABDOMEN: Soft. NERVOUS SYSTEM: No focal deficit. Cholesterol is 206. LDL is 139. DISCHARGE ADVICE AND MEDICATIONS: 1. Diet is cardiac. 2. Activity limited until followup. 3. Follow up with primary physician Dr. Bush, in 1 to 2 days. 4. Follow up with Dr. Shaikh, Dr[facility] as recommended. 5. Medications are: a. Tylenol 500 mg every 6 hours p.r.n. b. Lipitor 40 mg p.o. q.h.s. c. Cymbalta 60 mg p.o. daily. d. Voltaren 75 mg p.o. b.i.d. e. Hydrocodone 1 tablet b.i.d. f. Cefzil 5 mg p.o. daily. g. Lopressor 25 mg p.o. b.i.d. h. No diuretics at this time. To be evaluated in the outpatient setting. MTDD
== END 2016-06-10 14:51 | disposition home or self-care (01) | DRG 312 ==
LOC: EC 23:56 → 6SEL 06-07 00:50
PROVIDERS: ADMIT Internal Medicine; ATTEND Internal Medicine
PROC: B246ZZ4 Ultrasonography of Right and Left Heart, Transesophageal (ICD-10-PCS; principal; 2016-06-10 07:30)
DX: R55 Syncope and collapse (principal); I50.33 Acute on chronic diastolic (congestive) heart failure; I71.2 Thoracic aortic aneurysm, without rupture; G40.909 Epilepsy, unspecified, not intractable, without status epilepticus; I08.3 Combined rheumatic disorders of mitral, aortic and tricuspid valves; Q25.47 Right aortic arch; I65.23 Occlusion and stenosis of bilateral carotid arteries; I11.0 Hypertensive heart disease with heart failure; Q27.8 Other specified congenital malformations of peripheral vascular system; E78.5 Hyperlipidemia, unspecified; M19.90 Unspecified osteoarthritis, unspecified site; G89.29 Other chronic pain; M54.17 Radiculopathy, lumbosacral region; F12.90 Cannabis use, unspecified, uncomplicated; Z82.49 Family history of ischemic heart disease and other diseases of the circulatory system; Z79.1 Long term (current) use of non-steroidal anti-inflammatories (NSAID); Z79.891 Long term (current) use of opiate analgesic; Z79.899 Other long term (current) drug therapy; Z87.828 Personal history of other (healed) physical injury and trauma
CPT/HCPCS: 36415; 71010; 71020; 71275; 80053; 80061; 80306; 81003; 83735; 83880; 84484; 85025; 85379; 93005; 93306; 93312; 93320; 93325; 93880; 95816; 99285